=== PATIENT | male | born 1985 | race Hispanic/Latino ===

== ENCOUNTER 2018-09-05 18:42 | Inpatient (IN) | payer MEDICAID, OTHER ==
--- NOTE | 2018-09-05 21:10 | C.PDOC ---
History Of Present Illness 33 year old male presents seeking detox. Reports he drinks three pints of vodka and sniffs 15 bags of heroin daily. Patient is homeless. Time Seen by Provider: 09/05/18 20:57 Chief Complaint (Nursing): Substance Abuse History Per: Patient History/Exam Limitations: no limitations Onset/Duration Of Symptoms: Hrs Current Symptoms Are (Timing): Still Present Modifying Factor(s): Alcohol, Other (Heroin) Recent travel outside of the [place]: No Past Medical History Reviewed: Historical Data, Nursing Documentation, Vital Signs Vital Signs: Last Vital Signs Temp 98.1 F 09/05/18 18:47 Pulse 90 09/05/18 18:47 Resp 18 09/05/18 18:47 BP 144/74 09/05/18 18:47 Pulse Ox 100 09/05/18 18:47 Primary Care Provider: Non [facility] Provider, - Medical History PMH: Asthma, Bipolar Disorder, Depression - [facility] INJECT/INFUSE NEC (08/18/13) Family History: States: Unknown Family Hx - Social History Hx Alcohol Use: Yes Hx Substance Use: Yes (HEROIN,XANAX,MARIJUANA) - Immunization History Hx Tetanus Toxoid Vaccination: No Hx Influenza Vaccination: No Hx Pneumococcal Vaccination: No Review Of Systems Constitutional: Negative for: Fever, Chills Cardiovascular: Negative for: Chest Pain, Palpitations Respiratory: Negative for: Cough, Shortness of Breath Gastrointestinal: Negative for: Nausea, Vomiting Neurological: Negative for: Weakness, Numbness Physical Exam - Physical Exam Appears: Non-toxic, Other (Disheveled, Foul smelling, ETOH on breath) Skin: Normal Color, Warm Head: Atraumatic, Normacephalic Eye(s): bilateral: Normal Inspection Oral Mucosa: Moist Chest: Symmetrical, No Tenderness Cardiovascular: Rhythm Regular Respiratory: Normal Breath Sounds, No Rales, No Rhonchi, No Wheezing Gastrointestinal/Abdominal: Soft, No Tenderness Extremity: Normal ROM (x4) Neurological/Psych: Oriented x3, Normal Speech ED Course And Treatment - Laboratory Results Result Diagrams: 09/05/18 21:30 09/05/18 21:30 Lab Interpretation: Abnormal (tox + THC, Cocaine/ opiates) O2 Sat by Pulse Oximetry: 100 (Room air) Pulse Ox Interpretation: Normal Reevaluation Time: 22:59 Reassessment Condition: Unchanged Disposition Doctor Will See Patient In The: Hospital Counseled Patient/Family Regarding: Studies Performed, Diagnosis - Disposition Disposition: HOSPITALIZED Disposition Time: 22:59 Condition: GOOD Forms: [facility] (Macedonian) - Clinical Impression Clinical Impression: Drug dependence - Scribe Statement The provider has reviewed the documentation as recorded by the Scribbrian Mckeon All medical record entries made by the Radhaibe were at my direction and personally dictated by me. I have reviewed the chart and agree that the record accurately reflects my personal performance of the history, physical exam, medical decision making, and the department course for this patient. I have also personally directed, reviewed, and agree with the discharge instructions and disposition.
[2018-09-05 21:38] LABS: EOS # 0.2 K/uL (0.0-0.7); HEMOGLOBIN 13.1 g/dL (12.0-18.0); MEAN CORPUSCULAR HGB CONC 35.2 g/dL (33.0-37.0); MONO # 0.7 K/uL (0.0-0.8)
[2018-09-05 21:41] LABS: BASO % 0.4 % (0.0-2.0); EOS % 1.6 % (0.0-4.0); LYMPH # 3.8 K/uL (1.0-4.3); LYMPH % 35.1 % (20.0-40.0); MEAN CELL VOLUME 88.6 fL (80.0-94.0); MEAN CORPUSCULAR HEMOGLOBIN 31.2 pg (27.0-31.0); MEAN PLATELET VOLUME 8.3 fL (7.2-11.7); MONO % 6.3 % (0.0-10.0); NEUT # 6.1 K/uL (1.8-7.0); NEUT % 56.6 % (50.0-75.0); NRBC % 0.1 % (0.0-2.0); RBC 4.21 Mil/uL (4.40-5.90); RED CELL DISTRIBUTION WIDTH 12.9 % (11.5-14.5); WHITE BLOOD COUNT 10.7 K/uL (4.8-10.8)
[2018-09-05 21:45] LABS: URINE BILIRUBIN NEGATIVE (NEGATIVE); URINE BLOOD NEGATIVE (NEGATIVE); URINE CLARITY Clear (Clear); URINE COLOR Straw (YELLOW); URINE GLUCOSE (UA) NORMAL (Normal); URINE LEUKOCYTE ESTERASE NEG Leu/uL (Negative); URINE PROTEIN NEGATIVE (NEGATIVE); URINE UROBILINOGEN NORMAL mg/dL (0.2-1.0)
[2018-09-05 21:54] LABS: ALB/GLOB RATIO 1.4 (1.0-2.1); ALBUMIN 3.7 g/dL (3.5-5.0); ALT/SGPT 22 U/L (21-72); AST/SGOT 21 U/L (17-59); BLOOD UREA NITROGEN 14 mg/dL (9-20); CALCIUM 8.8 mg/dl (8.6-10.4); GFR NON-AFRICAN AMERICAN > 60
[2018-09-05 21:59] LABS: BARBITURATES, UR NEGATIVE (NEGATIVE); BENZODIAZEPINES, UR NEGATIVE (NEGATIVE); PHENCYCLIDINE, UR NEGATIVE (NEGATIVE)
[2018-09-05 22:00] LABS: OPIATES, UR POSITIVE (NEGATIVE)
--- NOTE | 2018-09-06 00:28 | PCM.BM ---
<Franc Zamudio - Last Filed: 09/06/18 00:26> Treatment Plan Problems - Problems identified on initial assessmt Defensive Coping Date Initiated: 09/06/18 Time Initiated: 00:27 Assessment reference: NA Denial Date Initiated: 09/06/18 Time Initiated: 00:27 Assessment reference: NA Status: Active Chronic Low Self Steem Date Initiated: 09/06/18 Time Initiated: 00:27 Assessment reference: NA Status: Active Treatment assets and liabiliti Patient Assests: cooperative, ADL independent, physically healthy, negotiates basic needs, cognitively intact, good interpersonal skills Patient Liabilities: substance abuse - Milieu Protocol Maintain good personal hygiene: daily Encourage regular showers, daily Remind patient to perform daily oral care, daily Assist patient to perform ADL's Conduct patient checks and document Observation sheet: Q15 minutes Maintain personal safety: every shift Educate patient to report safety concerns to staff, every shift Monitor environment for contraband/sharps Medication safety: Monitor for expected outcome, potential side effects: every shift, Assess barriers to learning: every shift, Assess readiness for medication education: every shift <Monica Fernandes - Last Filed: 09/09/18 12:37> - Diagnosis (1) Opioid use disorder, severe, dependence Status: Acute Interventions: 09/09/18 12:37 * Assess 7x/week regarding severity of withdrawal * Educate regarding risks, benefits, side effects and alternatives of medications * Use Motivational Interviewing for abstinence * Use CBT for relapse prevention * Medication management for withdrawal symptoms * Encourage medication assisted treatment *
--- NOTE | 2018-09-06 19:47 | PCM.PSYCH ---
Initial Psychiatric Evaluation - Initial Psychiatric Evaluation Type of Admission: Voluntary Legal Status: Capacity Chief Complaint (in patient's own words): Patient is a 33 year old single male who presented to the ED for heroin and alcohol detox. Patient reports that he snort 15 bags of heroin on a daily basis sometimes IV since he was 21 years old, last used was yesterday at 1:00pm snorting 4 bags. He also reports drinking alcohol since he was 13 years old. He drinks 2 pints of vodka and 3-4 cans of beer daily, last drink was 1 hour before he came to the ED. Patient reports that he smokes about 2 packs of cigarettes/day, UDS + for opiates, cocaine, THC, bal <10. He reports significant withdrawal symptoms but denies any history of seizures or DTs. He reports a history of several detox at [facility], last detox was in last summer. He is currently homeless and unemployed. He reports withdrawal symptoms including nausea, body aches, diarrhea, diaphoresis and irritability. Patient was noted to be minimally cooperative during the evaluation. PYschHx: Schizoaffective Disorder, Bipolar Type, Depression - Risperdal and Depakote, [place], Gabapentin, Elavil (non-adherent), Detox at [facility], suicide attempt at age 14 PMHx: Ashtma FamHx: Hx of substance abuse Current Medications: Active Medications Generic Name Dose Route Start Last Admin Trade Name Freq PRN Reason Stop Dose Admin Clonidine HCl 0.1 mg 09/06/18 13:14 Catapres PO Q6 PRN withdrawal symptoms Dicyclomine HCl 10 mg 09/06/18 11:56 Bentyl PO Q6 PRN Muscle spasm Hydroxyzine HCl 25 mg 09/06/18 11:40 Atarax PO Q6 PRN Anxiety Ibuprofen 600 mg 09/06/18 11:42 09/06/18 17:21 Motrin Tab PO 600 mg Q6 PRN Administration Pain, moderate (4-7) Loperamide HCl 2 mg 09/06/18 17:22 Imodium PO QID PRN Diarrhea Methadone HCl 15 mg 09/07/18 08:00 Methadone PO 09/11/18 17:29 RQ24 ESTELA Taper Mirtazapine 15 mg 09/06/18 22:00 Remeron PO HS ESTELA Ondansetron HCl 4 mg 09/06/18 11:55 Zofran Tab PO Q6 PRN Nausea/Vomiting Past Psychiatric History - Past Psychiatric History Pertinent Medical Hx (Current Medical&Sleep Prob, Allergies): Allergies Allergy/AdvReac Type Severity Reaction Status Date / Time Penicillins Allergy RASH Verified 07/05/18 18:44 Elavil 07/05/18 Gabapentin 300 mg PO TID 07/05/18 [place] 07/05/18 Review of Systems - Psychiatric Psychiatric: As Per HPI, Abnormal Sleep Pattern, Anxiety, Behavioral Changes, Change in Appetite, Depression, Irritability Mental Status Examination - Personal Presentation Personal Presentation: Looks older than stated age - Affect Affect: Constricted, Depressed - Motor Activity Motor Activity: Calm - Reliability in Providing Information Reliability in Providing Information: Fair - Speech Speech: Relevant, Coherent - Mood Mood: Depressed, Anxious - Formal Thought Process Formal Thought Process: No Impairment - Obsessions/Compulsions Obsessions: None Compulsions: None - Cognitive Functions Orientation: Person, Place, Situation, Time Sensorium: Alert Attention/Concentration: Attentive Estimate of Intelligence: Average Judgement: Imparied, as evidence by: Poor judgement - Risk Risk: Seizure, Withdrawal - Limitations Limitations: Other Additional comments: Homeless DSM 5 DX - DSM 5 DSM 5 Diagnosis: Opioid withdrawal Opioid use disorder, Severe Alcohol withdrawal Alcohol use disorder, Severe Schizoaffective Disorder, Bipolar Type - Recommended/Plan of Treatment Treatment Recommendations and Plan of Treatment: Taper with Methadone As needed medications - Clonidine, Atarax, Bentyl and Motrin Start Remeron 15mg at bedtime All risks, benefits and alternatives of the meds discussed, and the pt agreed and understood. Attend groups and activities Supportive therapy and psychoeducation [place] for abstinence CBT for relapse prevention Encourage MAT Refer to rehab or IOP, and self-help groups Teach healthy lifestyle methods, i.e. diet, exercise, meditation Smoking cessation with [place] Nicotine patch 21mg/24hr - Smoking Cessation Smoking Cessation Initiated: Yes
--- NOTE | 2018-09-07 18:51 | PCM.PYCHPN ---
Psychiatric Progress Note - Psychiatric Progress Note Patient Chief Complaint: Patient is a 33 year old single male who presented to the ED for heroin and alcohol detox. Patient reports that he snort 15 bags of heroin on a daily basis sometimes IV since he was 21 years old, last used was yesterday at 1:00pm snorting 4 bags. He also reports drinking alcohol since he was 13 years old. He drinks 2 pints of vodka and 3-4 cans of beer daily, last drink was 1 hour before he came to the ED. Patient reports that he smokes about 2 packs of cigarettes/day, UDS + for opiates, cocaine, THC, bal <10. He reports significant withdrawal symptoms but denies any history of seizures or DTs. He reports a history of several detox at [facility], last detox was in last summer. He is currently homeless and unemployed. He reports withdrawal symptoms including nausea, body aches, diarrhea, diaphoresis and irritability. Patient was noted to be minimally cooperative during the evaluation. PYschHx: Schizoaffective Disorder, Bipolar Type, Depression - Risperdal and Depakote, [place], Gabapentin, Elavil (non-adherent), [place] [facility], suicide attempt at age 14 PMHx: Ashtma FamHx: Hx of substance abuse Problems Identified/Issues Discussed: The pt is seen, chart reviewed, case is discussed with staff. The pt is compliant with medications and reports no side-effects. Symptoms are improving but needs more time to stabilize and to avoid relapse. Patient is however reporting that the Methadone does not last long enough and he is requesting for Subutex Pt attends groups and activities. Support given, psycho-education provided. After care discussed. Medication Change: Yes (Detox changes daily ) Medical Record Reviewed: Yes Mental Status Examination - Cognitive Function Orientation: Person, Place, Situation, Time Memory: Intact Attention: WNL Concentration: WNL - Mood Mood: Depressed, Anxious - Affect Affect: Constricted, Depressed - Speech Speech: Appropriate - Formal Thought Process Formal Thought Process: No Impairment - Suicidal Ideation Suicidal Ideation: No - Homicidal Ideation Homicidal Ideation: No Goal/Treatment Plan - Goal/Treatment Plan Progress Toward Problem(s) and Goals/Treatment Plan: Continue medications Support and psychoeducation daily Attend groups and activities daily Individual therapy After care planning by OFE and the team - Smoking Cessation Smoking Cessation Initiated: Yes
[2018-09-08] MEDS ORDERED: Buprenorphine Hydrochloride 8 mg SL SCH (10:00)
--- NOTE | 2018-09-09 12:39 | PCM.PYCHPN ---
Psychiatric Progress Note - Psychiatric Progress Note Patient seen today, length of contact: 16 min Patient Chief Complaint: "So so" Problems Identified/Issues Discussed: The pt is seen, chart reviewed, case discussed with staff. The pt is compliant with medications and reports no side-effects. Symptoms are improving but needs more time to stabilize. Pt attends groups and activities. Support given, psycho-education provided. After care discussed. Medication Change: Yes (Detox changes daily ) Medical Record Reviewed: Yes Mental Status Examination - Cognitive Function Orientation: Person, Place, Situation, Time Memory: Intact Attention: WNL Concentration: WNL - Mood Mood: Depressed, Anxious - Affect Affect: Constricted, Depressed - Speech Speech: Appropriate - Formal Thought Process Formal Thought Process: No Impairment - Suicidal Ideation Suicidal Ideation: No - Homicidal Ideation Homicidal Ideation: No Goal/Treatment Plan - Goal/Treatment Plan Need for Continued Stay: Discharge may exacerbated symptoms, Severe functional impairment Progress Toward Problem(s) and Goals/Treatment Plan: Continue medications Support and psychoeducation daily Attend groups and activities daily After care planning by counselors
--- NOTE | 2018-09-10 08:48 | PCM.PYCHDC ---
Mental Status Examination - Mental Status Examination Orientation: Person Discharge Summary - Discharge Note Laboratory Data: Abnormal Lab Results 09/09/18 09/09/18 17:05 17:05 Hepatitis C Antibody Negative HIV 1&2 Antibody Screen Negative Consultations:: List each consultation separately and include: 1. Reason for request. 2. Findings. 3. Follow-up Summary of Hospital Course include:: 1. Description of specific treatment plan utilized for patients during their course of treatmen. 2. Summarize the time- course for resolution of acute symptoms and/or regressed behaviors. 3. Describe issues identified and worked on during hospitalization. 4. Describe medication utilized. 5. Describe medical problems identified and treated. 6. Reassessment of suicide risk Summary of Hospital Course: He will go to [facility]. - Diagnosis (1) Opioid use disorder, severe, dependence Current Visit: Yes Status: Acute - Final Diagnosis (DSM 5) Condition upon Discharge: GOOD Disposition: HOME/ ROUTINE Follow-up Treatment Plan: Continue medications Support and psychoeducation daily Attend groups and activities daily After care planning by counselors Prescriptions/Medication Reconciliation: Gabapentin [Neurontin] 300 mg PO TID #90 cap hydrOXYzine HCl [Atarax] 25 mg PO DAILY PRN #30 tab PRN Reason: Anxiety Mirtazapine [Remeron] 15 mg PO HS #30 tab
[2018-09-10 10:32] VITALS: BP 113/70; PULSE 70; RESP 18; TEMP 97.6; O2SAT 98
== END 2018-09-10 10:40 | disposition home or self-care (01) | DRG 744 ==
LOC: C.ER 18:42 → C.7D 22:58
PROVIDERS: ADMIT Psychiatry & Neurology Psychiatry; ATTEND Psychiatry & Neurology Psychiatry
PROC: HZ2ZZZZ Detoxification Services for Substance Abuse Treatment (ICD-10-PCS; principal; 2018-09-05)
PROC: HZ59ZZZ Individual Psychotherapy for Substance Abuse Treatment, Supportive (ICD-10-PCS; 2018-09-05)
PROC: GZ3ZZZZ Medication Management (ICD-10-PCS; 2018-09-05)
PROC: HZ46ZZZ Group Counseling for Substance Abuse Treatment, Psychoeducation (ICD-10-PCS; 2018-09-05)
DX: F11.23 Opioid dependence with withdrawal (principal); F25.0 Schizoaffective disorder, bipolar type; F10.239 Alcohol dependence with withdrawal, unspecified; F12.90 Cannabis use, unspecified, uncomplicated; F17.210 Nicotine dependence, cigarettes, uncomplicated; J45.909 Unspecified asthma, uncomplicated; Y90.0 Blood alcohol level of less than 20 mg/100 ml; Z91.5 Personal history of self-harm; Z59.0 Homelessness